=== PATIENT | female | born 1960 | race Caucasian/White ===

== ENCOUNTER → 2019-11-28 | Outpatient (CLI) | payer OTHER ==
--- NOTE | 2019-12-01 13:19 | PATH ---
[address] [address] PATHOLOGY RPT PROCEDURE Name: SHAISTA MANZO [facility] [id number] Admission: 11/28/19 Date of : 56 Discharge: Report #: [id number] Path Case #: [id number] [facility] Accession Number: [id number] . 01 Material submitted: . breast - LEFT BREAST CALCIFICATION. Modifiers: left . 01 Clinical history: . Left breast stereotactic biopsy for calcifications . 02 Diagnosis: Left breast calcifications, stereotactic biopsy: - Fibroadenoma with coarse stromal calcifications and benign breast tissue, negative for atypia. See comment. (KENA:pit 11/30/2019) QTP 11/30/2019 1214 Local . 02 Comment: Fibroadenoma spanning 1 mm and associated with coarse calcification is identified in A1. Reviewed with Dr. Kirill Phoenix who agrees with the diagnosis. ([facility] 11/30/2019) . 02 Electronically signed: . Jono Farmer MD, Pathologist NPI- [id number] . 01 Gross description: . The specimen is received in formalin, labeled "Shaista Manzo, left breast calcifications" and consists of a blue cassette containing needle cores of yellow breast tissue measuring 1.2 x 1.0 x 0.3 cm in aggregate which are transferred to cassette A1. Additionally received are multiple needle cores of yellow breast tissue measuring 3.6 x 2.4 x 0.6 cm in aggregate which are entirely submitted in A2-A3. The specimen was collected on 11/28/2019 at 11:25 AM and placed in formalin 11:31 AM. The cold ischemic time is 6 minutes and the total formalin fixation time is greater than 6 hours less than 72 hours. (SDY; 11/29/2019) SYU/SYU 11/29/2019 1103 Local . 02 Pathologist provided ICD-10: D24.2 . 02 CPT . 438142 Specimen Comment: A courtesy copy of this report has been sent to [phone] Specimen Comment: [address] [place] [address] PATHOLOGY RPT PROCEDURE Name: SHAISTA MANZO [facility] [id number] Admission: 11/28/19 Date of : 56 Discharge: Report #: [id number] Path Case #: [id number] Specimen Comment: Report sent to / DR PASTOR Specimen Comment: A duplicate report has been generated due to demographic updates. Performed at: 01 [facility] [place] [id number] [facility] [address], [place], [place] [id number] MD Sukhjinder Clements MD Phone: [phone] Performed at: [address] [facility] [address] , [place], [place] [id number] MD Jono Farmer MD Phone: [phone]
== END | disposition home or self-care (01) ==
LOC: M.RAD 10:46
DX: D24.2 Benign neoplasm of left breast (principal); R92.1 Mammographic calcification found on diagnostic imaging of breast